=== PATIENT | female | born 1965 | race Caucasian/White ===

== ENCOUNTER 2016-06-10 06:32 | Day surgery (SDC) | payer OTHER ==
[~2016-06-10] VITALS: Ht 160 cm; Wt 66.1 kg
[~2016-06-10 06:32] MED LIST: CeFAZolin Inj 2 GM in IV Premix 1 EACH IV ONE; LORA10CA PO; Lactated Ringer's 1,000 ML IV SCH
[2016-06-10] MEDS ORDERED: Ketamine 10 mg/mL 20 mL Inj ONE (06:33)
[2016-06-10] MEDS ORDERED: Propofol 10,000 mCg/mL 20 mL Inj ONE (06:33)
[2016-06-10] MEDS ORDERED: CeFAZolin 2 Gm/50 mL D5W Duplex Bag IV ONE (06:33)
[2016-06-10 06:52] VITALS: BP 125/78; PULSE 79; RESP 16; O2SAT 97
[2016-06-10] MEDS ORDERED: Lactated Ringer's 500 ML IV PRN (08:17)
[2016-06-10] MEDS ORDERED: Lactated Ringer's 1,000 ML IV SCH (08:17)
--- NOTE | 2016-06-10 08:17 | PCM.HPANE ---
Patient Data Date of Service: Jun 10, 2016 Surgeon Admitting Provider: Attending Provider:Jorge Guallpa MD Primary Care Physician:Didi Schmidt MD Other Provider: Reason for Visit Right Index Finger Cyst, Scalp Cyst Ht/WT & BMI Height (Feet): 5 Height (Inches): 3 Weight (Kilograms): 66.1 Body Mass Index 25.00 Allergies Coded Allergies: No Known Allergies (Verified Allergy, Unknown, 11/10/13) Past Anesthesia History Anesthesia History: Denies:: Abnormal Airway, Anesthesia Reactions, Difficult Intubation, Fam Anesthesia Reaction, Fam Malignant Hypertherm, Malignant Hyperthermia Diabetes History Hx Diabetes?: No MRSA MRSA: No Medications Hypertension Medication: No Home Meds Incl Beta Ruy: No Reported Medications Loratadine (Claritin)10 Mg [id number] Mg PO DAILY PRN allergy sx Ref 0 06/05/16 Discontinued Reported Medications Ibuprofen Chew 100 Mg Tab.[id number] Mg PO PRN Ref 0 10/30/13 Acidophilus/Pectin, [place] (Acidophilus Probiotic Capsule)1 Each Capsule1 Each PO DAILY 500 MILLION CELL 10/27/13 Loratadine (Claritin)10 Mg [id number] Mg PO DAILY 30 Days Ref 0 10/27/13 History History of ENT Problems?: Yes HEENT History: Denies:: Abnormal Airway Difficult Intubation Dysphagia Hearing Problem Sinus Problem (hx sinus surgery) Hx of Heart Problems?: No Cardiovascular History: Denies:: AICD Atrial Fibrillation Chest Pain Hypertension Pacemaker Valvular Heart Disease Hx of Respiratory Problem?: No Respiratory History: Denies:: Asthma COPD Cough Hemoptysis Oxygen Administration Pneumonia Tuberculosis Use of C-PAP Machine Hx Neurologic Problems?: No Neurological History: Denies:: CVA Dementia Headaches Multiple Sclerosis Parkinson's Disease Seizures Hx of GI Problems?: No Gastrointestinal History: Denies:: Cirrhosis Diverticulitis Gastroesphageal Reflux Gastrointestinal Bleeding Hiatal Hernia Rectal Bleeding Hx of Problems?: No Genitourinary History: Denies:: Kidney Stones Urinary Tract Infection Female Hx: Denies:: Currently Problems with Breasts? Skin History: Positive for:: History Skin Disorders? (index finger cyst, scalp cyst x 2- current problem) Denies:: Pressure Ulcers Hx Musculoskeletal Problems?: No Musculoskeletal History: Denies:: Back Injury Joint Replacement Musculoskeletal Trauma Osteoarthritis Hx of Psycho/Social Problems?: No Psycho Social History: Denies:: Anxiety Hx Depression Hx Surgeries?: Yes (bladder sling ) Hx Any Other Health Problems?: Yes Other History: Positive for:: Thyroid Disease (past hx- only being monitored now) Denies:: Cancer Endocrine Disease Hospitalization History Blood Transfusions: Denies:: Blood Transfusions Hx Diabetes: No Hx Alcohol Use: NoHx Substance Use: No Smoking Status: Never Smoker Have You Smoked inLast 12 mo: No Stop/Bang S-Snoring: Do You Snore Loudly: No T-Tired: feel tired, fatigued: No O-Obsered: Observed not breath: No P-Blood Pressure: treated: No B- Body Mass Index > 35 kg/m2: No A- Age over 50: Yes N- Neck Large Circumference: No G- Gender Male: No LORRAINE Total Score: 1 LORRAINE Risk Assessment: Low Risk, <3 Yes Risk Assessment Category Category 1A: Patient has history of documented sleep apnea, and HAS NOT received any narcotic, sedative or anesthesia administration during this stay. Category 1B: Patient has history of documented sleep apnea, and HAS received any narcotic , sedative or anesthesia administration during this stay Category 2: Patient has SUSPECTED Obstructive Sleep Apnea, and HAS received any narcotic , sedative or anesthesia administration during this stay. Category 3: Patient has SUSPECTED Obstructive Sleep Apnea and HAS NOT received narcotic, sedative or anesthesia administration during this stay. Category 4: Outpatient in Procedural Areas with known sleep apnea or who screen positive for High Risk via the STOP/BANG questionnaire. Exam Exam Vital Signs Vital Signs Date Time Temp Pulse Resp B/P Pulse Ox O2 Delivery O2 Flow Rate FiO2 06/10/16 06:52 36.2 79 16 125/78 97 Room Air General Appearance: Alert, Oriented X3, Cooperative, No Acute Distress HEENT/AIRWAY: MP 2 Lungs: Clear to Auscultation, Normal Air Movement Heart: Exam Unremarkable, Regular Rate/Rhythm, No Murmurs/Rubs/Gallops Plan Impression Patient chart reviewed, patient interviewed and anesthestic plan with risks, benefits, and alternatives discussed, and informed consent obtained. NPO Status: 06/10 1230 ASA Physical Status: ASA2 Mod Systemic Disease Anesthetic Plan: MAC Bene/Risks/Altern/Consents: Yes HP Complete Prior to Induction: Yes Aravind Maher MD Jun 10, 2016 08:17
[2016-06-10] MEDS ORDERED: Ondansetron 2 mg/mL 2 mL Inj IVPUSH PRN (08:20)
[2016-06-10] MEDS ORDERED: hydrALAZINE 20 mg/mL Inj IVPUSH PRN (08:20)
[2016-06-10] MEDS ORDERED: HYDROmorphone 1 mg/mL Inj IVPUSH PRN (08:20)
[2016-06-10] MEDS ORDERED: fentaNYL-PF 50 mCg/mL 2 mL Inj IVPUSH PRN (08:20)
[2016-06-10] MEDS ORDERED: EPHEDrine Sulfate 50 mg/mL Inj IVPUSH PRN (08:20)
[2016-06-10] MEDS ORDERED: Phenylephrine 10,000 mCg/mL Inj IVPUSH PRN (08:20)
[2016-06-10] MEDS ORDERED: Labetalol 5 mg/mL 4 mL Inj IV PRN (08:20)
[2016-06-10] MEDS ORDERED: Dexamethasone 4 mg/mL Inj IVPUSH PRN (08:20)
[2016-06-10] MEDS ORDERED: MetoCLOpramide 5 mg/mL 2 mL Inj IVPUSH PRN (08:20)
[2016-06-10] MEDS ORDERED: Lactated Ringer's 1,000 ML IV ONE (08:24)
[2016-06-10] MEDS ORDERED: Bupivacaine-MPF 0.25% 30 mL Inj INFILTRATE ONE (08:41)
[2016-06-10 09:10] VITALS: BP 139/73; PULSE 66; RESP 14; O2SAT 100
[2016-06-10] MEDS ORDERED: HYDROcodone-APAP 5-325 mg Tablet PO PRN (09:15)
--- NOTE | 2016-06-10 09:59 | OP ---
[address] [address] OPERATIVE REPORT PATIENT: THEE GLEZ : 1965 MR#: [id number] ADMIT: 06/10/2016 JOB ID: [id number] DATE OF SURGERY: 06/10/2016 PREOPERATIVE DIAGNOSIS(ES): Right index finger mucous cyst. POSTOPERATIVE DIAGNOSIS(ES): Right index finger mucous cyst. PROCEDURE: 1. Excision of right index finger mucous cyst. 2. Right index finger distal interphalangeal joint debridement. SURGEON: Jorge Guallpa M.D. BRAIN PICKER: None. ANESTHESIA: MAC with local. ESTIMATED BLOOD LOSS: Minimal. COMPLICATIONS: None apparent. SPECIMEN: Right index finger mucous cyst to Pathology. INDICATIONS FOR PROCEDURE: This is a 50-year-old female patient with a slowly enlarging subcutaneous mass of the right index finger consistent with a mucous cyst. At this point, excision is indicated. PROCEDURES AND FINDINGS: The patient was identified in the preoperative area. A surgical site was marked. I have previously scheduled the patient for excision of two scalp cysts as well. However, these cysts are quite small and have decreased in size since her previous examination. At this point, it was elected not to excise those cysts. The patient was then taken back to the operating room and placed supine on the operating table. Appropriate time-outs were taken. MAC was induced smoothly. The patient was then prepped and draped in the usual sterile manner. Local anesthesia was then infiltrated to the right index finger consisting of 1% lidocaine and 0.25% Marcaine. These were infiltrated around the neurovascular bundles and dorsal ring block. A small finger tourniquet was then placed on the base of the index finger after the finger has been exsanguinated. A chevron incision was then made with one limb over the DIP joint and the second limb directly over the mucous cyst. Incision was then deepened down through the skin. I first turned my attention to the portion of the incision over the DIP joint. I performed blunt and sharp dissection down to the underlying extensor complex. I then dissected the skin off of the mucous cyst sharp and blunt dissection with a pair of iris scissors. Once the skin had been dissected off the cyst, I continued to dissect the cyst away from the surrounding soft tissue. It was elevated off of the deep fascia and periosteum. I then dissected the cyst from a distal to proximal fashion until the cyst was traced down to the DIP joint radially. The stalk was then excised at the joint surface. This allows the specimen to be passed off to Pathology. Once this has been done, a longitudinal incision was then made into the radial dorsal joint capsule at the border of the extensor tendon. Once this was done, and a capsulotomy was made, a small window was made excising a small portion of the dorsal radial capsule. The joint was then examined. There were a couple moderately sized bone spurs, mostly at the base of the distal phalanx. These were removed with rongeur. Palpation was then carried out in the area and the contour of the joint and the middle phalangeal head was felt to be smooth. Tourniquet was released and hemostasis was obtained with bipolar electrocautery. The incision was then reapproximated using several 5-0 Prolene horizontal mattress sutures. The patient tolerated the procedure well. Needle count, sponge count and instrument counts were correct at the end of the procedure. The patient was transported to recovery in stable condition.
[2016-06-10 10:09] VITALS: BP 158/73; PULSE 67; RESP 14; O2SAT 100
--- NOTE | 2016-06-10 11:13 | PCM.ANEP2 ---
Post Anesthesia Evaluation ASA/CMS Post Anesthesia VS in Patient's Normal Range?: Yes Resp Stable; Airway Patent?: Yes CV Function & Hydration Stable: Yes Mental Status Recovered?: Yes Pain control Satisfactory?: Yes N/V Control Satisfactory?: Yes Aravind Maher MD Jun 10, 2016 11:13
--- NOTE | 2016-06-10 11:13 | PCM.ANEP1 ---
Post Anesthesia Phase 1 PACU Phase 1 Assessment Date of Service: Jun 10, 2016 Vital Signs Vital Signs Date Time Temp Pulse Resp B/P Pulse Ox O2 Delivery O2 Flow Rate FiO2 06/10/16 10:09 67 14 158/73 100 06/10/16 09:10 36.2 66 14 139/73 100 Room Air 06/10/16 06:52 36.2 79 16 125/78 97 Room Air Anesthetic Administered: MAC Level of Alertness: Awake, talking MEDELLIN's with Equal Strength: Yes Pain: No Nausea or Vomiting: No Oxygen Delivery: Room Air Lungs: Clear to Auscultation, Normal Air Movement Aravind Maher MD Jun 10, 2016 11:13
--- NOTE | 2016-06-12 10:35 | PATH ---
SURGICAL PATHOLOGY Attending Physician:Jorge Guallpa CASE STATUS: Signed Out PATIENT NAME: THEE GLEZ PID: [id number] : 1965 DATE COLLECTED:06/10/2016 16:43 SPECIMEN: Skin, Cyst CLINICAL HISTORY: RIGHT INDEX FINGER CYST 1.RIGHT INDEX FINGER MUCOUS CYST FINAL DIAGNOSIS: 1.RIGHT INDEX FINGER MUCOUS CYST: MUCOUS CYST. ICD10 CODE M71.341 GROSS DESCRIPTION: The specimen is received in one formalin filled container labeled with the patient's name, sublabeled "right index finger mucous cyst" and consists of a 0.4 x 0.3 x 0.3 CM light briseno portion of tissue. The specimen is entirely submitted in one cassette. 06/10/2016 DAC MICRO DESCRIPTION: See diagnosis. ICD-9 CODES: CPT CODES: 1: 10094 Electronically Signed Out Billy Brown MD [facility] [address], [place] [address] Technical component performed at [facility], [facility] [address], [place], [address]
== END 2016-06-10 23:59 | disposition home or self-care (01) ==
LOC: SAS 06:32
PROVIDERS: ATTEND Plastic Surgery
DX: M71.341 Other bursal cyst, right hand (principal); N39.3 Stress incontinence (female) (male); G25.81 Restless legs syndrome; J30.9 Allergic rhinitis, unspecified; E04.2 Nontoxic multinodular goiter; H69.80 Other specified disorders of Eustachian tube, unspecified ear
CPT/HCPCS: 26160; J0690; J7120